=== PATIENT | male | born 1990 | race Caucasian/White ===

== ENCOUNTER 2017-09-04 16:20 | Emergency (ER) | payer BC ==
[~2017-09-04] VITALS: Ht 185.4 cm; Wt 83.9 kg
[2017-09-04] MEDS ORDERED: TYLENOL325 MG PO (16:29)
[2017-09-04] MEDS ORDERED: NAPROSYN500 MG PO (17:44)
--- NOTE | 2017-09-05 11:38 | EKG ---
[facility] [address] [facility] [place] [address] Signed Normal sinus rhythm with sinus arrhythmia Normal ECG No previous ECGs available Confirmed by BRISA RAYO MD ([id number]) on 09/05/2017 11:38:44 AM Electronically Signed By: BRISA RAYO MD 09/05/17 1138 PATIENT NAME: HARJINDER YOUNG Electrocardiogram DATE OF : [birth year] PHYSICIAN: BRISA RAYO MD REPORT #: [id number] REPORT IS CONFIDENTIAL AND NOT TO BE RELEASED WITHOUT AUTHORIZATION
== END 2017-09-04 18:30 | disposition home or self-care (01) ==
LOC: ED 16:20
DX: R07.89 Other chest pain (principal)
CPT/HCPCS: 71046; 80053; 84484; 85025; 93005; 93010; 99285